=== PATIENT | female | born 1995 | race Caucasian/White ===

== ENCOUNTER 2018-07-16 00:30 | Emergency (ER) | payer OTHER ==
--- NOTE | 2018-07-16 00:52 | EDPHY ---
H & P Stated Complaint: SORE THROAT Time Seen by Provider: 07/16/18 00:46 HPI/ROS: Chief Complaint: Sore throat HPI: 23-year-old student presenting with 2 days of sore throat, pain with swallowing. She was seen at [facility] earlier today and had a negative strep test but was concerned. She has had low-grade fevers. Pain with swallowing. General malaise and body aches. No nausea or vomiting. No cough. No shortness of breath. No skin rash. ROS: 10 systems were reviewed and were negative except those elements noted in the HPI. PMH: Depression Social History: No smoking, no alcohol, no recreational drug use Family History: non-contributory Physical Exam: Gen: Awake, Alert, No Distress HEENT: Nose: no rhinorrhea Eyes: PERRLA, EOMI Mouth: Moist mucosa moderate tonsillar hypertrophy with no peritonsillar swelling, uvula is midline, mild erythema without exudate Neck: Supple, no JVD, mild cervical lymphadenopathy Chest: nontender, lungs clear to auscultation Heart: S1, S2 normal, no murmur Abd: Soft, non-tender, no guarding Back: no CVA tenderness, no midline tenderness Ext: no edema, non-tender Skin: no rash Neuro: CN II-XII intact, Sensation grossly intact, Strength 5/5 in bilateral upper and lower extremities - Personal History LMP (Females 10-55): Unknown Current Tetanus Diphtheria and Acellular Pertussis (TDAP): Yes - Medical/Surgical History Hx Asthma: No Hx Chronic Respiratory Disease: No Hx Diabetes: No Hx Cardiac Disease: No Hx Renal Disease: No Hx Cirrhosis: No Hx Alcoholism: No Hx HIV/AIDS: No Hx Splenectomy or Spleen Trauma: No Other PMH: DENIES - Social History Smoking Status: Never smoked Constitutional: Initial Vital Signs Temperature (C) 36.6 C 07/16/18 00:33 Heart Rate 111 H 07/16/18 00:33 Respiratory Rate 16 07/16/18 00:33 Blood Pressure 130/81 H 07/16/18 00:33 O2 Sat (%) 97 07/16/18 00:33 O2 Delivery Mode Room Air Allergies/Adverse Reactions: Sulfa (Sulfonamide Antibiotics) Allergy (Verified 07/16/18 00:31) Home Medications: Medication Instructions Recorded Control 07/16/18 Lexapro 07/16/18 Wellbutrin 100mg (*) 07/16/18 traZODone 07/16/18 Medical Decision Making ED Course/Re-evaluation: 23-year-old with viral URI and pharyngitis. Rapid strep today was negative. Monospot is negative. Symptoms consistent with viral URI. Will discharge with follow-up with [facility], return for any concerns. Continue ibuprofen and acetaminophen as needed. - Data Points Laboratory Results: 07/16/18 00:55 Monoscreen NEGATIVE (NEGATIVE) Departure - Departure Disposition: Home, Routine, Self-Care Clinical Impression: Upper respiratory infection Condition: Good Instructions: Upper Respiratory Infection (ED) Additional Instructions: Alternate acetaminophen (1000 mg) with ibuprofen (400 mg) every 4 hours as needed for fevers, chills, aches or pain. Follow up with [facility] in 2-3 days for re-evaluation if symptoms are not improving. Referrals: SOFIA TATE DR [Other] - As per Instructions YOANNA MARCH ,. [Clinic] - As per Instructions
[2018-07-16] MEDS ORDERED: DEXAMETHASONE 4 MG TAB PO ONE (01:29)
[2018-07-16 01:43] VITALS: BP 122/72
== END 2018-07-16 01:42 | disposition home or self-care (01) ==
DX: J06.9 Acute upper respiratory infection, unspecified (principal)